=== PATIENT | male | born 1960 | race Caucasian/White ===

== ENCOUNTER 2019-05-01 22:39 | Emergency (ER) | payer BC ==
--- NOTE | 2019-05-01 23:44 | CRLCR ---
INDICATION: Chest pain TECHNIQUE: Chest radiograph 2 views COMPARISON: None FINDINGS: Moderate degradation of image quality noted due to body habitus. Mediastinum: The mediastinum is normal in appearance. The heart silhouette is normal in size and morphology. Lung: Both lungs are unremarkable in appearance with small lung volumes. No sign of pleural effusion seen. No pneumothorax is identified. IMPRESSION: 1. No acute cardiopulmonary disease is seen. Dictated by: Maynor Brownlee MD @ 05/01/2019 23:43:28 (Electronically Signed)
[2019-05-02] MEDS ORDERED: Tetracaine HCl/PF 0.5% 4 ML Bottle EYEBOTH ONE (00:15)
[2019-05-02] MEDS ORDERED: Alum Hydrox/Mag Hydrox/Simeth 15 ML, Lidocaine 2% 15 ML PO ONE ×2 (00:15)
[2019-05-02] MEDS ORDERED: LORazepam 2 MG/ML SDV IVPUSH ONE (00:44)
--- NOTE | 2019-05-02 02:43 | EDM.PDOC ---
ED HPI GENERAL MEDICAL PROBLEM - General Chief Complaint: Chest Pain Stated Complaint: [facility] Time Seen by Provider: 05/02/19 00:35 Source of Information: Reports: Patient History Limitations: Reports: No Limitations - History of Present Illness INITIAL COMMENTS - FREE TEXT/NARRATIVE: 59 yo with hx of HTN presents with concerns of chest pain, eye pain, and foot tingling/pain. He just arrived in the area to be at a boy [employer] camp. He spent the day putting a new roof on a building. He has intermittent chest pain throughout the day. After dinner (around 9 pm) he was walking across the parking lot when the chest pain returned. This was accompanied by pain in the right eye and a crescent shape in his vision as well as pain and tingling in his right foot. The pain did not seem to be exertional. It is changing between his chest and left shoulder. It is stabbing. He has not history of cardiac disease. No fevers. No hx of blood clot. No LE swelling. EMS administered nitro and dilaudid which helped the pain. Currently 4/10 Pain worsens with palpitation He does have a history of cluster headaches Treatments [employer]: Reports: Aspirin, EKG, IV/IO, Nitroglycerin, Other (see below) Other Treatments [employer]: Zofran chest pain Pain Score (Numeric/FACES): 4 right sinus pain Pain Score (Numeric/FACES): 6 - Related Data Allergies Allergy/AdvReac Type Severity Reaction Status Date / Time No Known Allergies Allergy Verified 05/01/19 22:44 Home Meds: Home Meds Levothyroxine 25 mcg PO ACBREAKFAST 05/01/19 [History] Lisinopril 10 mg PO DAILY 05/01/19 [History] Loperamide [Imodium] 2 mg PO ASDIRECTED PRN 05/01/19 [History] Past Medical History HEENT History: Reports: Impaired Vision Cardiovascular History: Reports: Hypertension Respiratory History: Reports: Other (See Below) Other Respiratory History: Pleursy Gastrointestinal History: Reports: Bowel Obstruction, Chronic Diarrhea, Irritable Bowel Syndrome, Other (See Below) Other Gastrointestinal History: Crohns Musculoskeletal History: Reports: Back Pain, Chronic, Neck Pain, Chronic, Other (See Below) Other Musculoskeletal History: DDD Neurological History: Reports: Concussion, TIA, Other (See Below) Other Neuro History: DDD Endocrine/Metabolic History: Reports: Hypothyroidism - Infectious Disease History Infectious Disease History: Reports: Chicken Pox - Past Surgical History GI Surgical History: Reports: Small Bowel Neurological Surgical History: Reports: Laminectomy Musculoskeletal Surgical History: Reports: Carpal Tunnel, Other (See Below) Other Musculoskeletal Surgeries/Procedures:: right wrist surgery Social & Family History - Tobacco Use Smoking Status *Q: Never Smoker - Caffeine Use Caffeine Use: Reports: Soda - Recreational Drug Use Recreational Drug Use: No ED ROS GENERAL - Review of Systems Review Of Systems: See Below Constitutional: Reports: No Symptoms HEENT: Reports: No Symptoms Respiratory: Reports: Shortness of Breath Cardiovascular: Reports: Chest Pain Endocrine: Reports: No Symptoms GI/Abdominal: Reports: No Symptoms : Reports: No Symptoms Musculoskeletal: Reports: Foot Pain Skin: Reports: No Symptoms Neurological: Reports: No Symptoms Psychiatric: Reports: No Symptoms Hematologic/Lymphatic: Reports: No Symptoms Immunologic: Reports: No Symptoms ED EXAM, GENERAL - Physical Exam Exam: See Below Exam Limited By: No Limitations General Appearance: Alert, No Apparent Distress Ears: Normal External Exam Nose: Normal Inspection Throat/Mouth: Normal Inspection Head: Atraumatic, Normocephalic Neck: Normal Inspection Respiratory/Chest: Lungs Clear Cardiovascular: Regular Rate, Rhythm, No Murmur GI/Abdominal: Soft, Non-Tender, No Distention Back Exam: Normal Inspection Extremities: Normal Inspection, No Pedal Edema Neurological: Alert, Oriented, CN II-XII Intact Psychiatric: Normal Affect, Normal Mood Skin Exam: Warm, Dry EKG INTERPRETATION Rhythm: NSR QRS: Normal ST-T: Normal QT: Normal Comparison: NA - No Prior EKG Course - Vital Signs Last Recorded V/S: Last Vital Signs Temp 36.6 C 05/01/19 22:58 Pulse 86 05/02/19 06:21 Resp 14 05/02/19 06:21 BP 127/86 05/02/19 06:21 Pulse Ox 94 L 05/02/19 06:21 - Orders/Labs/Meds Orders: Active Orders 24 hr Category Date Time Status EKG Documentation Completion [RC] ASDIRECTED Care 05/01/19 22:44 Active EKG 12 Lead [EK] Routine Ther 05/01/19 22:44 Ordered Labs: Laboratory Tests 05/01/19 05/01/19 05/01/19 Range/Units 22:55 22:55 22:55 WBC 7.8 (4.5-11.0) K/uL RBC 4.50 (4.30-5.90) M/uL Hgb 12.9 (12.0-15.0) g/dL Hct 39.9 L (40.0-54.0) % MCV 89 (80-98) fL MCH 29 (27-31) pg MCHC 32 (32-36) % Plt Count 281 (150-400) K/uL Sodium 147 (140-148) mmol/L Potassium 3.8 (3.6-5.2) mmol/L Chloride 109 H (100-108) mmol/L Carbon Dioxide 27 (21-32) mmol/L Anion Gap 14.8 H (5.0-14.0) mmol/L BUN 18 (7-18) mg/dL Creatinine 1.2 (0.8-1.3) mg/dL Est Cr Clr Drug Dosing 71.85 mL/min Estimated GFR (MDRD) > 60 (>60) Glucose 107 H (74-106) mg/dL Calcium 8.9 (8.5-10.1) mg/dL Total Bilirubin 0.3 (0.2-1.0) mg/dL AST 16 (15-37) U/L ALT 22 (12-78) U/L Alkaline Phosphatase 71 (46-116) U/L Troponin I < 0.017 (0.000-0.056) ng/mL Total Protein 6.6 (6.4-8.2) g/dL Albumin 3.5 (3.4-5.0) g/dL Globulin 3.1 (2.3-3.5) g/dL Albumin/Globulin Ratio 1.1 L (1.2-2.2) 05/02/19 Range/Units 02:55 WBC (4.5-11.0) K/uL RBC (4.30-5.90) M/uL Hgb (12.0-15.0) g/dL Hct (40.0-54.0) % MCV (80-98) fL MCH (27-31) pg MCHC (32-36) % Plt Count (150-400) K/uL Sodium (140-148) mmol/L Potassium (3.6-5.2) mmol/L Chloride (100-108) mmol/L Carbon Dioxide (21-32) mmol/L Anion Gap (5.0-14.0) mmol/L BUN (7-18) mg/dL Creatinine (0.8-1.3) mg/dL Est Cr Clr Drug Dosing mL/min Estimated GFR (MDRD) (>60) Glucose (74-106) mg/dL Calcium (8.5-10.1) mg/dL Total Bilirubin (0.2-1.0) mg/dL AST (15-37) U/L ALT (12-78) U/L Alkaline Phosphatase (46-116) U/L Troponin I < 0.017 (0.000-0.056) ng/mL Total Protein (6.4-8.2) g/dL Albumin (3.4-5.0) g/dL Globulin (2.3-3.5) g/dL Albumin/Globulin Ratio (1.2-2.2) Meds: Medications Discontinued Medications Generic Name Dose Route Start Last Admin Trade Name Freq PRN Reason Stop Dose Admin Al Hydroxide/Mg Hydroxide 15 0 ml 05/02/19 00:15 05/02/19 00:33 ml/ Lidocaine HCl 15 ml PO 05/02/19 00:16 30 ml ONETIME ONE Administration Prochlorperazine Edisylate 10 52 mls @ 150 mls/hr 05/02/19 04:05 05/02/19 04: 20 mg/ Sodium Chloride IV 05/02/19 04:25 Not Given ONETIME ONE Lactated Ringer's 1,000 mls @ 999 mls/hr 05/02/19 04:13 05/02/19 04:56 Ringers, Lactated IV 05/02/19 05:13 999 mls/hr BOLUS ONE Administration Sodium Chloride 100 mls @ 4 mls/sec 05/02/19 04:20 05/02/19 04:34 Normal Saline IV 05/02/19 04:21 4 mls/sec ASDIRECTED STA Administration Iopamidol 100 ml 05/02/19 04:20 05/02/19 04:34 Isovue-370 (76%) IV 05/02/19 04:21 100 ml . DIRECTED STA Administration Lorazepam 1 mg 05/02/19 00:44 05/02/19 00:51 Ativan IVPUSH 05/02/19 00:45 1 mg ONETIME ONE Administration Prochlorperazine Edisylate 10 mg 05/02/19 04:19 05/02/19 04:57 Compazine IVPUSH 05/02/19 04:20 10 mg ONETIME ONE Administration Tetracaine HCl 1 ml 05/02/19 00:15 05/02/19 00:33 Tetracaine 0.5% Steri-Unit Whitley EYEBOTH 05/02/19 00:16 1 ml ASDIRECTED ONE Administration - Re-Assessments/Exams Free Text/Narrative Re-Assessment/Exam: 59 yo male presents with constellation of symptoms including reproducible chest pain, right eye pain with visual disturbance, and right foot pain all of which started acutely this evening. Did work on sebas a building today. Check IOP, normal. Neuro exam normal. Does have anterior chest wall tenderness. Not consistent with stroke. Low suspicion for PE or dissection. EKG non-ischemic (has had 3 including pre-hospital during 07/01 episode of pain) , first trop normal, this does not sound like ACS Difficult to tie together symptoms. Suspicious for cluster headache and MSK pain triggered by his exertion in the heat today. His CP is resolving. Will continue to monitor pending 6 hr delta troponin. 05/02/19 02:46 Free Text/Narrative Re-Assessment/Exam: Continued with intermittent chest pain and eye ache overnight. Initially failed ambulatory trial, felt quite dizzy and unable to ambulate with increasing chest pain. Obtain CTA of the chest - no PE or evidence of dissection. CT head negative. Repeat EKG without any changes. 6 hr troponin negative. Remains hemodynamically stable. Repeat ambulatory trial patient much improved. Believes he can go home in the care of his . Offered observation admission but patient would like to attempt going home which I believe is reasonable. He will be in the care of his friend and then and had agreed to return to the ER should his symptoms worsen. I am suspicion for some underlying psychiatric issues that is driving much of his presentation. He does have pulmonary nodules and splenic lesion which will require PCP follow- up. Discharged. 05/02/19 06:57 Departure - Departure Time of Disposition: 07:01 Disposition: Home, Self-Care 01 Clinical Impression: Chest pain Qualifiers: Chest pain type: unspecified Qualified Code(s): R07.9 - Chest pain, unspecified Eye pain Qualifiers: Laterality: right Qualified Code(s): H57.11 - Ocular pain, right eye Referrals: PCP,None [Primary Care Provider] - Forms: ED Department Discharge Additional Instructions: We did not identify any abnormalities on your work-up in the ED tonight. We suspect that your symptoms are due to exertion in the heat yesterday although this is not clear based on your work-up. As discussed, if you feel your symptoms are worsening or you are not safe at home return to the hospital. You need to establish a primary doctor for follow-up, including addressing the abnormalities on your CT scan. - My Orders Last 24 Hours: My Active Orders 05/01/19 22:44 EKG Documentation Completion [RC] ASDIRECTED EKG 12 Lead [EK] Routine - Assessment/Plan Last 24 Hours: My Active Orders 05/01/19 22:44 EKG Documentation Completion [RC] ASDIRECTED EKG 12 Lead [EK] Routine
[2019-05-02] MEDS ORDERED: Prochlorperazine 10 MG in Sodium Chloride 0.9% 50 ML IV ONE (04:05)
[2019-05-02] MEDS ORDERED: Lactated Ringers 1,000 ML IV ONE (04:13)
[2019-05-02] MEDS ORDERED: Prochlorperazine 10 MG/2 ML SDV IVPUSH ONE (04:19)
[2019-05-02] MEDS ORDERED: Iopamidol 755 Mg/ML 100 ML Bottle IV STA (04:20)
[2019-05-02] MEDS ORDERED: Sodium Chloride 0.9% 100 ML IV STA (04:20)
--- NOTE | 2019-05-02 05:04 | CRLCT ---
INDICATION: Headache and dizzy TECHNIQUE: CT Head without i.v. contrast. COMPARISON: None FINDINGS: CSF space: The ventricles are normal for age. Brain: No evidence of mass, acute infarction or hemorrhage is seen. No mass-effect or midline shift is seen. The brain parenchyma is otherwise normal in appearance with preservation of the young-white matter junction. Calvarium: The visualized paranasal sinuses are well aerated. The mastoid air cells are clear. The visualized orbits are grossly unremarkable. The calvarium is unremarkable in appearance with no fractures identified. IMPRESSION: 1. No evidence of acute infarction, intracranial hemorrhage, or mass-effect seen. Please note that all CT scans at this facility use dose modulation, iterative reconstruction, and/or weight-based dosing when appropriate to reduce radiation dose to as low as reasonably achievable. Dictated by: Maynor Brownlee MD @ 05/02/2019 05:03:51 (Electronically Signed)
--- NOTE | 2019-05-02 05:27 | CRLCT ---
INDICATION: Chest pain radiating into the legs, dizzy TECHNIQUE: CT chest with i.v. contrast using pulmonary angiographic technique. Coronal and sagittal reformats were obtained. CONTRAST: 100 mL Isovue 370 COMPARISON: None FINDINGS: Cardiovascular: The pulmonary arteries are unremarkable in enhancement with no evidence of acute pulmonary embolism. The heart has an unremarkable appearance and size. No sign of aneurysm in the thoracic aorta. No dissection is identified. Intramural hematoma cannot be excluded without noncontrast imaging. Mediastinum: No mass or adenopathy seen. Lung: There are several pulmonary nodules seen in both lung bases on image 94 measuring up to 1 cm. There are 2 pulmonary nodules present in the anterior right upper lobe on image 47 measuring up to 6 mm. An 8 mm nodule is present in the left upper lobe on image 65. Pleura and pericardium: No sign of pleural effusion seen. No significant pericardial effusion is present. Chest wall and axilla: No mass or adenopathy seen. Bone: Unremarkable for age. Upper abdomen: Multiple hypodense lesions are seen within the visualized spleen measuring up to 2.3 cm. IMPRESSIONS: 1. No CT evidence of dissection seen. Intramural hematoma cannot be excluded without noncontrast imaging. 2. Multiple hypodense lesions are seen within the visualized spleen, measuring up to 2.3 cm. Comparison with any prior outside imaging is recommended. If these cannot be obtained, further characterization with outpatient MRI or abdominal CT recommended. 3. Multiple bilateral pulmonary nodules are present measuring up to 1 cm, suspicious for metastatic disease or granulomatous infection. Further evaluation with biopsy of the largest nodule recommended. Dictated by Maynor Brownlee MD @ 05/02/2019 5:26:12 AM Please note that all CT scans at this facility use dose modulation, iterative reconstruction, and/or weight-based dosing when appropriate to reduce radiation dose to as low as reasonably achievable. Dictated by: Maynor Brownlee MD @ 05/02/2019 05:26:14 (Electronically Signed)
== END 2019-05-02 07:28 | disposition home or self-care (01) ==
LOC: JP.ED 22:39
DX: R07.89 Other chest pain (principal); H57.11 Ocular pain, right eye; I10 Essential (primary) hypertension; E03.9 Hypothyroidism, unspecified; Z79.899 Other long term (current) drug therapy; Z86.73 Personal history of transient ischemic attack (TIA), and cerebral infarction without residual deficits
CPT/HCPCS: 36415; 70450; 71046; 71275; 80053; 84484; 85027; 93005; 96361; 96374; 96375; 99285; A9270; J0780; J2060; J7030; J7120; Q9967